=== PATIENT | female | born 1990 | race Caucasian/White ===

== ENCOUNTER 2021-10-21 20:02 | Inpatient (IN) | payer OTHER ==
[~2021-10-21 20:02] MED LIST: BACLOFEN 10MG T10 MG PO; FLEXERIL10 MG PO; MEDROL 4MG DOSEP4 MG PO; NAPROXEN500 MG PO
[2021-10-21 21:29] LABS: HCT 33.6 % (37.0-47.0); HGB 11.4 g/dl (12.5-16.0); MCH 28.8 pg (25.0-31.0); MCHC 33.9 g/dL (32.0-36.0); MCV 84.8 fL (78.0-100.0); MPV 10.5 fL (6.0-9.5); RBC 3.96 M/uL (4.20-5.40); RDW 14.2 % (11.5-14.0); WBC 7.8 K/uL (4.0-10.5)
[2021-10-21 21:36] LABS: BILIRUBIN NEGATIVE (NEGATIVE); BLOOD 3+ Ery/uL (NEGATIVE); CLARITY CLEAR (CLEAR); COLOR YELLOW (YELLOW); GLUCOSE (U) NORMAL (NORMAL); LEUKOCYTES NEGATIVE Leu/uL (NEGATIVE); NITRITE NEGATIVE (NEGATIVE); PROTEIN TRACE (LOW) mg/dL (NEGATIVE); UROBILINOGEN 0.2 mg/dL (0.2-1.0)
[2021-10-21 21:37] LABS: ALBUMIN 2.4 g/dL (3.4-5.0); BILIRUBIN - TOTAL 0.2 mg/dL (0.2-1.0); BUN/CREAT RATIO (CALC) 17.3 RATIO; CREATININE 0.75 mg/dL (0.51-0.95); GLOBULIN (CALCULATION) 4.3 g/dL; POTASSIUM 3.9 mmol/L (3.5-5.1); TOTAL PROTEIN 6.7 g/dL (6.4-8.2)
[2021-10-21 21:44] LABS: BACTERIA 1+
[2021-10-21 21:45] LABS: AMORPHOUS URATES CRYSTALS TRACE
[2021-10-22 03:39] LABS: ALBUMIN 2.3 g/dL (3.4-5.0); BILIRUBIN - TOTAL 0.2 mg/dL (0.2-1.0); BUN/CREAT RATIO (CALC) 18.1 RATIO; CREATININE 0.72 mg/dL (0.51-0.95); GLOBULIN (CALCULATION) 4.1 g/dL; TOTAL PROTEIN 6.4 g/dL (6.4-8.2)
[2021-10-23 05:58] LABS: HCT 30.9 % (37.0-47.0); HGB 10.7 g/dl (12.5-16.0); MCH 29.6 pg (25.0-31.0); MCHC 34.6 g/dL (32.0-36.0); MCV 85.4 fL (78.0-100.0); MPV 10.3 fL (6.0-9.5); RBC 3.62 M/uL (4.20-5.40); RDW 14.5 % (11.5-14.0); WBC 10.3 K/uL (4.0-10.5)
== END 2021-10-24 14:20 | disposition home or self-care (01) | DRG 787 ==
LOC: FOB 20:02
PROVIDERS: Obstetrics & Gynecology; ADMIT Specialist
PROC: 10D00Z1 Extraction of Products of Conception, Low, Open Approach (ICD-10-PCS; principal; 2021-10-22 16:45)
DX: O99.214 Obesity complicating childbirth (principal); D62 Acute posthemorrhagic anemia; O24.429 Gestational diabetes mellitus in childbirth, unspecified control; Z20.822 Contact with and (suspected) exposure to COVID-19; Z37.0 Single live birth; Z3A.39 39 weeks gestation of pregnancy; O76 Abnormality in fetal heart rate and rhythm complicating labor and delivery; O99.02 Anemia complicating childbirth
CPT/HCPCS: 36415; 80053; 81001; 82009; 82947; 82962; 83036; 86850; 86900; 86901; J0456; J0595; J0690; J1200; J1885; J2001; J2274; J2370; J2405; J3010; J7050; J7120; J7121; U0002

== ENCOUNTER 2022-03-19 10:16 | Emergency (ER) | payer OTHER ==
[2022-03-19 11:01] LABS: BASOPHIL 0.2 % (0-2); EOSINOPHIL 0.2 % (0-5); HCT 39.1 % (37.0-47.0); HGB 13.5 g/dl (12.5-16.0); LYMPHOCYTE 6.8 % (15-48); MCH 28.9 pg (25.0-31.0); MCHC 34.5 g/dL (32.0-36.0); MCV 83.7 fL (78.0-100.0); MONOCYTE 4.3 % (0-12); MPV 9.5 fL (6.0-9.5); NEUTROPHIL 87.1 % (41-80); NRBC 0; PLT 345 K/uL (150-400); RBC 4.67 M/uL (4.20-5.40); RDW 13.4 % (11.5-14.0); WBC 16.1 K/uL (4.0-10.5)
[2022-03-19 11:16] LABS: ALBUMIN 3.9 g/dL (3.4-5.0); BILIRUBIN - TOTAL 0.6 mg/dL (0.2-1.0); BUN/CREAT RATIO (CALC) 13.4 RATIO; CREATININE 0.67 mg/dL (0.51-0.95); TOTAL PROTEIN 7.9 g/dL (6.4-8.2)
[2022-03-19 11:29] LABS: CORONAVIRUS 2019 SARS-COV-2 NEGATIVE (NEGATIVE); INFLUENZA A NAA NEGATIVE (NEGATIVE)
[2022-03-19] MEDS ORDERED: MUCINEX DM ER1 EACH PO (12:07)
[2022-03-19] MEDS ORDERED: ONDANSETRON ODT4 MG PO (12:07)
[2022-03-19] MEDS ORDERED: PREDNISONE 20MG20 MG PO (12:07)
== END 2022-03-19 14:30 | disposition home or self-care (01) ==
LOC: FER 10:16
PROVIDERS: Internal Medicine
DX: B34.9 Viral infection, unspecified (principal); Z20.822 Contact with and (suspected) exposure to COVID-19
CPT/HCPCS: 36415; 71045; 80053; 84145; 85025; J1100; J1885; J2405; J7120; U0002